=== PATIENT | female | born 1995 | race Caucasian/White ===

== ENCOUNTER 2016-12-16 01:24 | Emergency (ER) | payer BC, OTHER ==
[~2016-12-16] VITALS: Ht 167.6 cm; Wt 63.2 kg
[~2016-12-16 01:24] MED LIST: ADAP0.05 TOP; ALBUAER2 INH; CLON0.5T3 PO; CLR10 PO; IBUP-1050 PO; PRLSR20 PO
[2016-12-16 01:37] VITALS: TEMP 36.8; Ht 167.6 cm; Wt 63.2 kg
[2016-12-16] MEDS ORDERED: SODIUM CHLORIDE 0.9% 1000ML 500 ML IV ONE (02:11)
[2016-12-16 02:29] LABS: URINE APPEARANCE CLOUDY (CLEAR); URINE BILIRUBIN NEG (NEG); URINE COLOR YELLOW; URINE EPITHELIAL CELL AUTO >30 /lpf (0-5); URINE NITRITE NEG (NEG); URINE SPECIFIC GRAVITY 1.014 (1.000-1.030); UROBILINOGEN NEG (NEG); ZZUR CULT IF INDIC CLEAN CATCH YES
[2016-12-16 02:31] LABS: MANUAL MICROSCOPIC REQUIRED? NO; REVIEW REQ? YES
[2016-12-16 02:44] LABS: HEMATOCRIT 35.9 % (37-47); MEAN CELL VOLUME 87.3 fL (80-100); MEAN CORPUSCULAR HEMOGLOBIN 29.2 pg (25-34); MEAN CORPUSCULAR HGB CONC 33.4 g/dl (32-36); MEAN PLATELET VOLUME 9.9 fL (7.4-10.4); PLATELET COUNT 284 K/uL (130-400); RED BLOOD COUNT 4.11 M/uL (4.2-5.4); WHITE BLOOD COUNT 13.01 K/uL (4.8-10.8)
[2016-12-16 03:00] LABS: BUN/CREATININE RATIO 21.8 (10-20); CALCIUM 8.7 mg/dl (8.5-10.1); CREATININE 0.65 mg/dl (0.60-1.20); POTASSIUM 4.2 mmol/L (3.5-5.1)
[2016-12-16] MEDS ORDERED: BCPILLS PO (03:42)
[2016-12-16] MEDS ORDERED: MULT-506 PO (03:43)
[2016-12-16] MEDS ORDERED: MONT1TAB3 PO (03:44)
[2016-12-16] MEDS ORDERED: NAPR-1169 PO (03:46)
[2016-12-16] MEDS ORDERED: KETOROLAC TROMETHAMINE 30 MG/ML VIAL IV STA (03:47)
[2016-12-16 04:18] VITALS: BP 115/60; PULSE 63; O2SAT 99
[2016-12-16] MEDS ORDERED: SULFAMETHOXAZOLE/TRIMETHOPRIM DS 800/160MG TAB PO ONE (04:45)
[2016-12-16] MEDS ORDERED: SEPTRA DS HOME PACK 1 EA VIAL PO ONE (04:45)
[2016-12-16] MEDS ORDERED: NORCO 5/325MG HOME PACK PO ONE (04:45)
[2016-12-16] MEDS ORDERED: SULF800T23 PO (05:00)
--- NOTE | 2016-12-16 08:21 | DIAGNOSTIC IMAGING REPORT ---
ABD/PELVIS NO IV OR ORAL CONT CLINICAL HISTORY: 21 years-old Female presenting with rlq abd pain radiating to right flank. . TECHNIQUE: Multidetector CT of the abdomen and pelvis was performed without the use of intravenous contrast. IV contrast: None. A dose lowering technique was used consistent with the principles of ALARA (as low as reasonably achievable). COMPARISON: 05/05/2013. CT DOSE (mGy.cm): The estimated cumulative dose is 311.65 mGy.cm. FINDINGS: Supervisor Ditching topogram: Unremarkable. Lung bases: Minimal dependent changes likely atelectasis. Normal heart size. No pericardial or pleural effusion. The intraventricular blood pool is less dense and adjacent myocardium consistent with anemia. Liver: Normal morphology. Normal density. Biliary: No gross biliary ductal dilatation allowing for noncontrast technique. Normal gallbladder. Pancreas: Normal noncontrast appearance. Spleen: Normal noncontrast appearance. Adrenal glands: Normal noncontrast appearance. Kidneys and ureters: Normal noncontrast appearance. No hydronephrosis. Bladder: Normal. Pelvic organs: Normal noncontrast appearance. Bowel: Normal. Appendix poorly assessed. No bowel obstruction. Peritoneal cavity: Trace free fluid in the pelvis. Lymph nodes: No gross lymphadenopathy allowing for noncontrast technique. Vasculature: Normal noncontrast appearance. Abdominal wall: Normal. Musculoskeletal: Normal. IMPRESSION: 1. Allowing for noncontrast technique, no acute intra-abdominal pathology. 2. Anemia. Electronically signed by: Arnol Villa M.D. 12/16/2016 8:19 AM Dictated Date/Time: 12/16/2016 8:12 AM
--- NOTE | 2016-12-16 23:31 | EMERGENCY ROOM VISIT NOTE ---
History First contact with patient: 03:34 Chief Complaint: FLANK PAIN Stated Complaint: PAIN IN SIDE UP THROUGH SHOULDER BLADE AND BACK History of Present Illness The patient is a 21 year old female who presents to the Emergency Room with complaints of right-sided lower abdominal pain that is radiating into her right sided back. The patient states the pain has been ongoing for the past few days. She has not had fever or chills. Position does not improve or worsen her symptoms. She is not having chest pain, chest tightness, or shortness of breath. No upper abdominal tenderness. She denies chance of . She rates her discomfort a 5/10. Review of Systems More than 10 systems were reviewed and otherwise negative with the exception of history of present illness. Past Medical/Surgical History Medical Problems: (1) Asthma (2) Bronchitis Surgical Problems: (1) H/O wisdom tooth extraction (2) History of adenoidectomy Family History Appendicitis Diabetes mellitus FH: cancer FH: lung disease Hypertension Social History Smoking Status: Never Smoker Alcohol Use: none Marital Status: single Housing Status: lives with family Occupation Status: student Current/Historical Medications Scheduled Adapalene-Benzoyl Peroxide (Epiduo), 1 APPLN TOP HS Control Pills ( Control Pills), 1 TAB PO DAILY Multivitamin (Multivitamin), 1 TAB PO DAILY Sulfa/Trimethoprim (Bactrim Ds 800MG/160MG), 1 TAB PO BID Scheduled PRN Albuterol (Ventolin), 2 PUFFS INH QID PRN for SOB/Wheezing Clonazepam (Klonopin), 0.25 MG PO HS PRN for Sleep Ibuprofen (Advil), 400-600 MG PO Q6H PRN for Pain Loratadine (Claritin), 10 MG PO DAILY PRN for ALLERGIC REACTION Montelukast Sodium (Singulair), 10 MG PO DAILY PRN for ALLERGIC REACTION Naproxen (Naprosyn), 500 MG PO BID PRN for Pain Physical Exam Vital Signs Date Time Temp Pulse Resp B/P (MAP) Pulse Ox O2 Delivery O2 Flow Rate FiO2 12/16/16 04:18 63 15 115/60 99 Room Air 12/16/16 02:40 72 20 117/64 99 Room Air 12/16/16 01:37 36.8 74 18 143/85 99 Room Air Physical Exam VITALS: Vitals are noted on the nurse's note and reviewed by myself. Vital signs stable. GENERAL: Well-developed, well-nourished, white female, who is in no acute distress and resting comfortably. Patient is cooperative with the examination. HEART: Regular rate and rhythm without murmurs gallops or rubs. LUNGS: Clear to auscultation bilaterally without wheezes, rales or rhonchi. No retractions or accessory muscle use. ABDOMEN: Positive normal bowel sounds x 4. Soft with mild tenderness in the right lower quadrant. Positive right-sided CVA tenderness. MUSCULOSKELETAL: No muscle atrophy, erythema, or edema noted. Full range of motion without joint tenderness in all extremities. Medical Decision & Procedures ER Provider Diagnostic Interpretation: ABD/PELVIS NO IV OR ORAL CONT CLINICAL HISTORY: 21 years-old Female presenting with rlq abd pain radiating to right flank. . TECHNIQUE: Multidetector CT of the abdomen and pelvis was performed without the use of intravenous contrast. IV contrast: None. A dose lowering technique was used consistent with the principles of ALARA (as low as reasonably achievable). COMPARISON: 05/05/2013. CT DOSE (mGy.cm): The estimated cumulative dose is 311.65 mGy.cm. FINDINGS: Auto Body Technician topogram: Unremarkable. Lung bases: Minimal dependent changes likely atelectasis. Normal heart size. No pericardial or pleural effusion. The intraventricular blood pool is less dense and adjacent myocardium consistent with anemia. Liver: Normal morphology. Normal density. Biliary: No gross biliary ductal dilatation allowing for noncontrast technique. Normal gallbladder. Pancreas: Normal noncontrast appearance. Spleen: Normal noncontrast appearance. Adrenal glands: Normal noncontrast appearance. Kidneys and ureters: Normal noncontrast appearance. No hydronephrosis. Bladder: Normal. Pelvic organs: Normal noncontrast appearance. Bowel: Normal. Appendix poorly assessed. No bowel obstruction. Peritoneal cavity: Trace free fluid in the pelvis. Lymph nodes: No gross lymphadenopathy allowing for noncontrast technique. Vasculature: Normal noncontrast appearance. Abdominal wall: Normal. Musculoskeletal: Normal. IMPRESSION: 1. Allowing for noncontrast technique, no acute intra-abdominal pathology. 2. Anemia. Laboratory Results 12/16/16 01:52 12/16/16 01:52 Test 12/16/16 01:50 12/16/16 01:52 Urine Color YELLOW Urine Appearance CLOUDY (CLEAR) Urine pH 5.0 (4.5-7.5) Urine Specific Viola 1.014 (1.000-1.030) Urine Protein NEG (NEG) Urine Glucose (UA) NEG (NEG) Urine Ketones NEG (NEG) Urine Occult Blood NEG (NEG) Urine Nitrite NEG (NEG) Urine Bilirubin NEG (NEG) Urine Urobilinogen NEG (NEG) Urine Leukocyte Esterase LARGE (NEG) Urine WBC (Auto) >30 /hpf (0-5) Urine RBC (Auto) 0-4 /hpf (0-4) Urine Hyaline Casts (Auto) 0 /lpf (0-5) Urine Epithelial Cells (Auto) >30 /lpf (0-5) Urine Bacteria (Auto) 2+ (NEG) Urine Test NEG (NEG) Red Blood Count 4.11 M/uL (4.2-5.4) Mean Corpuscular Volume 87.3 fL (80-100) Mean Corpuscular Hemoglobin 29.2 pg (25-34) Mean Corpuscular Hemoglobin Concent 33.4 g/dl (32-36) RDW Standard Deviation 41.1 fL (36.4-46.3) RDW Coefficient of Variation 12.8 % (11.5-14.5) Mean Platelet Volume 9.9 fL (7.4-10.4) Anion Gap 9.0 mmol/L (3-11) Est Creatinine Clear Calc Drug Dose 128.1 ml/min Estimated GFR () 147.1 Estimated GFR (Non- 126.9 BUN/Creatinine Ratio 21.8 (10-20) Calcium Level 8.7 mg/dl (8.5-10.1) Medications Administered Medications (Trade) Dose Ordered Sig/Moy Route Start Time Stop Time Status Last Admin Dose Admin Sodium Chloride 500 ml @ 999 mls/hr Q31M ONCE IV 12/16/16 02:11 12/16/16 02:41 DC 12/16/16 02:39 999 MLS/HR Ketorolac Tromethamine (Toradol Inj) 30 mg NOW STAT IV 12/16/16 03:47 12/16/16 03:49 DC 12/16/16 04:20 30 MG Trimethoprim/ Sulfamethoxazole (Septra Ds 800/ 160MG Tab) 1 tab NOW ONCE PO 12/16/16 04:45 12/16/16 04:46 DC 12/16/16 04:58 1 TAB Trimethoprim/ Sulfamethoxazole (Sulfameth/ Trimeth Ds 800/ 160MG Home Pack) 1 homepack UD ONCE PO 12/16/16 04:45 12/16/16 04:46 DC 12/16/16 04:58 1 HOMEPACK Acetaminophen/ Hydrocodone Bitart ([place] 5/325mg Home Pack) 1 homepack UD ONCE PO 12/16/16 04:45 12/16/16 04:46 DC 12/16/16 04:58 1 HOMEPACK ED Course Physical exam and history were performed. Nursing notes, EMR, and Medication List were personally reviewed. Patient appears to have right flank and right lower quadrant abdominal pain. She does have some CVA tenderness on the right. IV access was established and labs were obtained under protocol orders. The patient was hydrated and medicated as above. The patient's blood work is as above and was reviewed. She does have an elevated white blood cell count of 13,000. She does not have significant anemia , bandemia, gross electrolyte imbalance. Her urine is concerning for possible infection. Because of these symptoms I did elect for the CT scan, which does not show signs of ureteral calculi, appendicitis, or other significant findings. Overall I suspect patient's symptoms are related to UTI and/or possible early pyelonephritis. She will be given a course of Bactrim for her symptoms. The patient is to follow up closely with her primary care physician for further care and management. She was otherwise invited back to the ER with any new, worsening, or concerning symptoms. The chart was completed utilizing [employer]ognition Software. Grammatical errors, random word insertions, pronoun errors, and incomplete sentences are an occasional consequence of this system due to software limitations, ambient noise, and hardware issues. Any formal questions or concerns about the content, text, or information contained within the body of this dictation should be directly addressed to the provider for clarification. . Medical Decision Differential diagnosis: Etiologies such as appendicitis, diverticulitis, PUD, biliary pathology, UTI, pancreatitis, obstruction, mesenteric ischemia, aortic pathology, infections, inflammatory bowel disease, renal colic, as well as others were entertained. Impression Primary Impression: Urinary tract infection Departure Information Dispostion Home / Self-Care Condition GOOD Prescriptions Sulfa/Trimethoprim (Bactrim Ds 800MG/160MG) Tab 1 TAB PO BID for 10 Days, #20 TAB Prov: Marques Ray PA-C 12/16/16 Forms HOME CARE DOCUMENTATION FORM, IMPORTANT VISIT INFORMATION Patient Instructions My [facility] Additional Instructions You were seen and evaluated today on an emergency basis only. This is not a substitute for, or an effort to provide, complete comprehensive medical care. It is not possible to recognize and treat all injuries or illnesses in a single emergency department visit. For this reason it is recommended that you followup with your primary care physician this week for ongoing care and evaluation. For baseline pain relief you may alternate ibuprofen and acetaminophen every 4 hours for pain control. Take 600 mg ibuprofen (Advil) and then 4 hours later take 1000 mg acetaminophen (Tylenol). Do not take more than 3000 mg acetaminophen in a single day. Trimethoprim-Sulfamethoxazole(Bactrim DS): Take one pill twice daily for 10 days for your urine infection. All antibiotics can cause diarrhea. If this occurs and you feel worse or it does not resolve in 1-2 days follow up with your doctor or return to the Emergency Department as this could be signs of serious underlying problems. Any medication can cause an allergic reaction, stop the pills immediately and return to the ER for rash, hives, breathing difficulties, or swelling. You are welcome to return to the emergency department anytime with new, worsening, or concerning symptoms.
== END 2016-12-16 04:58 | disposition home or self-care (01) ==
LOC: C.EDB 01:25 → C.EDC 04:58
DX: N39.0 Urinary tract infection, site not specified (principal); J45.909 Unspecified asthma, uncomplicated; Z98.890 Other specified postprocedural states; Z79.899 Other long term (current) drug therapy; Z83.3 Family history of diabetes mellitus; Z80.9 Family history of malignant neoplasm, unspecified; Z82.49 Family history of ischemic heart disease and other diseases of the circulatory system

== ENCOUNTER → 2017-06-12 | Outpatient (CLI) | payer OTHER ==
[~2017-06-12] MED LIST changes: +BCPILLS PO; +MONT1TAB3 PO; +MULT-506 PO; +NAPR-1169 PO; -PRLSR20 PO
--- NOTE | 2017-06-13 07:33 | PULMONARY FUNCTION TEST ---
Spirometry is within the limits of normal. Repeat study done following bronchodilator showed no significant change. Flow volume loops were consistent with spirometric findings.
== END | disposition home or self-care (01) ==
LOC: C.RC 10:27
PROVIDERS: ATTEND Family Medicine
DX: J45.909 Unspecified asthma, uncomplicated (principal)